=== PATIENT | female | born 1990 | race Caucasian/White ===

== ENCOUNTER 2019-11-20 03:00 | Inpatient (IN) | payer OTHER ==
[~2019-11-20] VITALS: Ht 162.6 cm; Wt 67.1 kg
[2019-11-20 03:09] VITALS: Ht 162.6 cm; Wt 67.1 kg
[2019-11-20 04:06] LABS: BASOPHIL % 0.2 % (0-2); PLATELET COUNT 281 x10^3mcL (130-400); RED CELL DISTRIBUTION WIDTH 13.3 % (11.5-14.5)
[2019-11-20 04:35] LABS: CALCIUM 9.8 mg/dL (8.5-10.1); CARBON DIOXIDE 28.9 mmol/L (21-32); CHLORIDE SERUM 102 mmol/L (98-107); CREATININE SERUM 0.6 mg/dL (0.6-1.0); GFR1 > 60 mL/min; GLUCOSE SERUM 111 mg/dL (74-106); POTASSIUM SERUM 4.2 mmol/L (3.5-5.1); SODIUM SERUM 139 mmol/L (136-145)
[2019-11-20] MEDS ORDERED: [UNRECOGNIZED DRUG - OTHER] (07:09)
[2019-11-20 07:45] LABS: UA SPECIFIC GRAVITY 1.015 (1.005-1.035); microscopic required? YES; urine erythrocyte TRACE (NEGATIVE)
[2019-11-20 08:23] LABS: AMPHETAMINE QUAL UR NONE DETECTED (See below)
[2019-11-20 10:11] VITALS: BP 112/68
[2019-11-20 13:03] VITALS: BP 107/68
[2019-11-20 16:55] VITALS: BP 104/67
[2019-11-20 20:49] VITALS: BP 109/71
[2019-11-21 05:32] VITALS: BP 101/66
[2019-11-21 06:10] LABS: BASOPHIL % 1.1 % (0-2); PLATELET COUNT 260 x10^3mcL (130-400); RED CELL DISTRIBUTION WIDTH 13.4 % (11.5-14.5)
[2019-11-21 06:16] LABS: CALCIUM 8.6 mg/dL (8.5-10.1); CARBON DIOXIDE 29.1 mmol/L (21-32); CHLORIDE SERUM 104 mmol/L (98-107); CREATININE SERUM 0.6 mg/dL (0.6-1.0); GFR1 > 60 mL/min; GLUCOSE SERUM 98 mg/dL (74-106); MAGNESIUM 1.8 mg/dL (1.8-2.4); PHOSPHOROUS 3.2 mg/dL (2.5-4.9); POTASSIUM SERUM 4.2 mmol/L (3.5-5.1); SODIUM SERUM 139 mmol/L (136-145)
[2019-11-21 09:34] VITALS: BP 103/59
[2019-11-21 14:20] VITALS: BP 113/65
[2019-11-21 16:50] VITALS: BP 102/59
[2019-11-21 20:28] VITALS: BP 103/53
[2019-11-22 05:24] VITALS: BP 109/70
[2019-11-22 07:43] VITALS: BP 104/67
[2019-11-22 12:35] VITALS: BP 107/62
[2019-11-22 16:30] VITALS: BP 107/62
[2019-11-22 20:19] VITALS: BP 108/71
[2019-11-23 05:27] VITALS: BP 94/55
[2019-11-23 09:12] VITALS: BP 110/60
[2019-11-23] MEDS ORDERED: XARELTO15 M1 PO (10:53)
[2019-11-23 11:28] VITALS: BP 110/60
[2019-11-23 11:58] VITALS: BP 108/74
== END 2019-11-23 12:15 | disposition home or self-care (01) | DRG 134 ==
LOC: ED 03:00 → DU 06:08
PROVIDERS: Emergency Medicine; ADMIT Family Medicine
DX: I26.99 Other pulmonary embolism without acute cor pulmonale (principal); N83.209 Unspecified ovarian cyst, unspecified side; R09.02 Hypoxemia
CPT/HCPCS: 85378; G0378; J1644; J2405; J7030; Q0092; Q9967